=== PATIENT | female | born 1965 | race Caucasian/White ===

== ENCOUNTER 2022-05-22 06:31 | Day surgery (SDC) | payer MEDICAID ==
[~2022-05-22] VITALS: Ht 152.4 cm; Wt 90.7 kg
[2022-05-22] MEDS ORDERED: SIMETHICONE 40 MG/0.6 ML ML ONE (07:38)
[2022-05-22] MEDS ORDERED: MIDAZOLAM HCL 5 MG/5 ML VIAL ONE (07:38)
[2022-05-22] MEDS ORDERED: fentaNYL CITRATE/PF 100 MCG/2 ML AMP ONE (07:38)
[2022-05-22 07:44] LABS: HCG,QUAL RESULT NEGATIVE (NEGATIVE)
[2022-05-22 18:19] VITALS: BP_SYST 101
== END 2022-05-22 10:50 | disposition home or self-care (01) ==
LOC: SGI 06:31 → SMU 06:39 → SGI 10:50
PROVIDERS: ATTEND Internal Medicine
DX: K62.5 Hemorrhage of anus and rectum (principal); K64.8 Other hemorrhoids; K29.50 Unspecified chronic gastritis without bleeding; I10 Essential (primary) hypertension; E11.9 Type 2 diabetes mellitus without complications; E78.5 Hyperlipidemia, unspecified; Z90.49 Acquired absence of other specified parts of digestive tract; Z79.84 Long term (current) use of oral hypoglycemic drugs; Z79.899 Other long term (current) drug therapy; Z20.822 Contact with and (suspected) exposure to COVID-19
CPT/HCPCS: 43239; 45378; 87426; 87081; 82962; 84703; 36415; 88305; 88312; 88313; 99152; 99153; G0378; J2250; J3010